=== PATIENT | female | born 1980 | race Caucasian/White ===

== ENCOUNTER → 2017-01-19 | Outpatient (CLI) | payer OTHER ==
[2017-01-19 11:42] LABS: Basophils % (A) 1 %; CHCM 33.8; Eosinophils # (A) 0.1 k/uL (0-0.7); Eosinophils % (A) 2 %; HCT 38.5 % (34.0-46.0); HDW 3.33; Luc # (Auto) 0.13; Luc % (Auto) 2; Lymphocytes % (A) 35 %; MCH 29.2 pg (25.0-35.0); MCHC 33.7 g/dL (31.0-37.0); MCV 86.4 fL (80.0-100.0); Mean Platelet Volume 8.7; Monocytes # (A) 0.2 k/uL (0-1.0); Monocytes % (A) 4 %; Neutrophils # (A) 3.1 k/uL (1.3-7.7); Neutrophils % (A) 56 %; RBC 4.46 m/uL (3.80-5.40); RDW 14.4 % (11.5-15.5); WBC 5.6 k/uL (3.8-10.6); WBC (Perox) 5.77
== END | disposition home or self-care (01) ==
LOC: LABPAT 11:14
PROVIDERS: ATTEND Obstetrics & Gynecology
DX: Z01.818 Encounter for other preprocedural examination (principal)
CPT/HCPCS: 36415; 85025

== ENCOUNTER 2017-01-25 06:28 | Day surgery (SDC) | payer OTHER ==
[2017-01-23 10:17] VITALS: BMI 47.0
--- NOTE | 2017-01-24 16:34 | P.HPOB ---
History of Present Illness H&P Date: 01/24/17 Chief Complaint: menorrhagia 37 year old presents for D&C hysteroscopy and placement of mirena IUD. PT has irregular heavy menses and PCOS. Review of Systems All systems: negative Constitutional: Denies chills, Denies fever Eyes: denies blurred vision, denies pain Ears, nose, mouth and throat: Denies headache, Denies sore throat Cardiovascular: Denies chest pain, Denies shortness of breath Respiratory: Denies cough Gastrointestinal: Denies abdominal pain, Denies diarrhea, Denies nausea, Denies vomiting Genitourinary: Denies dysuria, Denies hematuria Musculoskeletal: Denies myalgias Integumentary: Denies pruritus, Denies rash Neurological: Denies numbness, Denies weakness Psychiatric: Denies anxiety, Denies depression Endocrine: Denies fatigue, Denies weight change Past Medical History Past Medical History: No Reported History Additional Past Medical History / Comment(s): polycystic ovarian sydrome. Obstetric history: She has had 3 normal vaginal deliveries. History of Any Multi-Drug Resistant Organisms: None Reported Past Surgical History: Cholecystectomy Additional Past Surgical History / Comment(s): left ovary removed Past Anesthesia/Blood Transfusion Reactions: Postoperative Nausea & Vomiting ( PONV) Past Psychological History: No Psychological Hx Reported Smoking Status: Former smoker Past Alcohol Use History: Occasional Additional Past Alcohol Use History / Comment(s): Smoked ocassionally for 1 yr, quit 2007. Past Drug Use History: None Reported - Past Family History Mother Family Medical History: No Reported History Medications and Allergies Home Medications Medication Instructions Recorded Confirmed Type No Known Home Medications [No 01/23/17 01/23/17 History Known Home Medications] Allergies Allergy/AdvReac Type Severity Reaction Status Date / Time No Known Allergies Allergy Verified 01/23/17 10:06 Exam Osteopathic Statement: *. No significant issues noted on an osteopathic structural exam other than those noted in the History and Physical/Consult. Heart: RRR Lungs: CTAB Abdomen: soft, nontender Extremeties: neg elidia's Assessment and Plan (1) Menorrhagia with irregular cycle Status: Acute Plan: 1. D&C hysteroscopy and endometrial ablation with NovaSure
[~2017-01-25 06:28] MED LIST: DEXAMETHASONE SOD PHOSPHATE 10 MG/ML 1 ML VIAL IV ONE; HYDROmorphone 1 MG/ML 1 ML SYRINGE IVP PRN; LACTATED RINGERS 1,000 ML IV SCH; LIDOCAINE 1% 20 ML VIAL (10MG/ML) FOR IV START INTRADERMA PRN; MIDAZOLAM 2 MG/2 ML VIAL IV PRN; Pre Op ABX Message 1 EACH MISC MISCELLANE ONE; SCOPOLAMINE 1.5MG/72HR PATCH TRANSDERM ONE
[2017-01-25] MEDS: ONDANSETRON 4 MG/2 ML VIAL IVP ONE ×2 (07:08→08:26)
[2017-01-25] MEDS ORDERED: PROPOFOL 10 MG/ML 20 ML VIAL IV ONE (07:28)
[2017-01-25] MEDS ORDERED: MIDAZOLAM 2 MG/2 ML VIAL ONE (07:28)
[2017-01-25] MEDS ORDERED: KETOROLAC 30 MG/ML 1 ML VIAL ONE (07:28)
[2017-01-25] MEDS ORDERED: LIDOCAINE 1% INJ 10MG/ML (20 ML MDV) ONE (07:28)
[2017-01-25] MEDS ORDERED: SUCCINYLCHOLINE CHLORIDE VIAL 200 MG/10 ML VIAL IV ONE (07:28)
--- NOTE | 2017-01-25 07:55 | P.OP ---
Date of Procedure: 01/25/17 Preoperative Diagnosis: 1. menorrhagia with irregular cycles Postoperative Diagnosis: 1. menorrhagia with irregular cycles Procedure(s) Performed: D&C, hysteroscopy, placement of Mirena IUD Anesthesia: GHULAM Surgeon: Lakisha Harvey Estimated Blood Loss (ml): 5 IV fluids (ml): 600 Urine output (ml): 10 Pathology: other (Endometrial curettings) Condition: stable Disposition: PACU Operative Findings: Smooth contour of the uterus, both ostia visualized, uterus sounded to 10 cm. Description of Procedure: Patient is taken the operating room where general anesthesia was obtained without difficulty. She is prepped draped normal sterile fashion dorsal lithotomy position, legs placed in stirrups. Bladder was drained of all urine. Weighted speculum placed in the vagina and the anterior lip the cervix was grasped with a single-tooth tenaculum. The uterus sounded to 10 cm. The cervix is dilated to #8 Hegar dilator. Hysteroscopy was performed. During the hysteroscopy was noted that she had a smooth contour of uterus, no polyps or proliferative endometrium seen, both ostia visualized. Sharp curet was then gently used to obtain endometrial curettings. The Mirena was then placed in normal sterile fashion, strings cut to to 3 cm from the cervical os. Patient tolerated the procedure well, sponge and instrument counts are correct 2. She was taken to recovery room in stable condition.
[2017-01-25 08:21] VITALS: TEMP 97.4
[2017-01-25] MEDS ORDERED: PROMETHAZINE INJ 25 MG/ML 1 ML VIAL IVPB ONE (08:49)
[2017-01-25] MEDS ORDERED: LACTATED RINGERS 1,000 ML IV ONE ×2 (08:53)
[2017-01-25 09:59] VITALS: BP 123/79; PULSE 77; RESP 16
== END 2017-01-25 10:15 | disposition home or self-care (01) ==
LOC: OR 06:28
PROVIDERS: ATTEND Obstetrics & Gynecology
DX: N92.0 Excessive and frequent menstruation with regular cycle (principal); N92.6 Irregular menstruation, unspecified; E28.2 Polycystic ovarian syndrome; Z87.891 Personal history of nicotine dependence
CPT/HCPCS: 81025; 88305; 58558; 58300; J2250; J0330; J1100; J2550; J2405; J2001; J1885; J2704

== ENCOUNTER → 2017-12-26 | Outpatient (CLI) | payer MEDICAID, OTHER ==
--- NOTE | 2017-12-26 16:15 | XR ---
EXAMINATION TYPE: XR Hip Complete RT DATE OF EXAM: 12/26/2017 COMPARISON: NONE HISTORY: 37 year-old female right leg pain after fall a week ago TECHNIQUE: 2 views FINDINGS: There is some bony prominence along the superior acetabular margin. Joint space is maintained. No acu te fracture, subluxation, or dislocation. IMPRESSION: 1. No acute osseous abnormality seen. 2. There is some bony prominence of the superior acetabular margin. Correlate for any potential sympt oms of femoral acetabular impingement syndrome.
--- NOTE | 2017-12-26 16:16 | XR ---
EXAMINATION TYPE: XR knee complete RT DATE OF EXAM: 12/26/2017 COMPARISON: NONE HISTORY: 37 year-old female right leg pain after fall a week ago TECHNIQUE: 3 views FINDINGS: Minimal degenerative spurring medial and patellofemoral compartments. No significant knee joint effus ion. Extensor mechanism is intact. No acute fracture, subluxation, or dislocation seen. IMPRESSION: Minimal early spurring in the medial and patellofemoral compartments. No acute osseous abnormality se en.
== END | disposition home or self-care (01) ==
LOC: RADXRMAIN 14:28
PROVIDERS: ATTEND Family Medicine
DX: M79.604 Pain in right leg (principal)
CPT/HCPCS: 73502

== ENCOUNTER → 2018-01-23 | Outpatient (CLI) | payer MEDICAID, OTHER ==
[2018-01-23 13:21] VITALS: BP 126/72; PULSE 100; RESP 15; TEMP 98.7; BMI 50.0
--- NOTE | 2018-01-23 14:40 | P.HPBAR ---
Bariatric H&P - History & Physicial H&P Date: 01/23/18 History & Physicial: Visit/CC: gastric surgery consult Patient initial contact: Initial weight: 136.441 kg Initial weight in pounds: 300.80 Height: 5 ft 5 in Initial BMI: 50.0 Last weight: Current weight: 136.441 kg Current weight in pounds: 300.80 Current BMI: 50.0 [place] body weight (based on NIH guidelines): 56.699 kg Excess body weight loss: 0.0% The patient is a 38 year-old F who presents for Bariatric Assessment. Patient seen today in the clinic as a new patient evaluation for bariatric surgery. She is known to our office from working at [facility] [employer] in the past. She is currently interested in sleeve gastrectomy. She has investigated LAP-BAND previously and also gastric bypass but prefers the risk benefit profile of the sleeve gastrectomy. The patient suffers from chronic back pain. She states that she does snore because of enlarged tonsils but never had a sleep study. Denies GERD, no DVT, no dysphagia. Today's BMI 50. Review of Systems The patient denies any acute changes in vision or hearing, no dysphagia or odynophagia, no chest pain or shortness of breath, no dysuria or hematuria, no headache, no runny nose, no rectal bleeding or melena, no unexplained weight loss Past Medical History Additional Past Medical History / Comment(s): polycystic ovarian sydrome. Obstetric history: She has had 3 normal vaginal deliveries. History of Any Multi-Drug Resistant Organisms: None Reported Past Surgical History: Cholecystectomy Additional Past Surgical History / Comment(s): left ovary removed 2008; gallbladder removed in 2000 Past Anesthesia/Blood Transfusion Reactions: Postoperative Nausea & Vomiting ( PONV) Additional Past Anesthesia/Blood Transfusion Reaction / Comm: No blood transfusion to date Past Psychological History: Depression Additional Psychological History / Comment(s): Takes prozac 20mg daily Smoking Status: Never smoker Past Alcohol Use History: None Reported Past Drug Use History: None Reported - Past Family History Mother Family Medical History: Osteoarthritis (OA) Additional Family Medical History / Comment(s): patient states her maternal grandfather had lung cancer Father Additional Family Medical History / Comment(s): Patient states her father had a non-cancerous brain tumor. Patient stats paternal grandmother had breast cancer Surgical - Exam Vital Signs Temp Pulse Resp BP 98.7 F 100 15 126/72 01/23/18 13:13 01/23/18 13:13 01/23/18 13:13 01/23/18 13:13 Physical exam: General: Well-developed, well-nourished HEENT: Normocephalic, sclerae nonicteric Abdomen: Nontender, nondistended Extremities: No edema Neuro: Alert and oriented Bariatric Assessment & Plan (1) Morbid obesity Narrative/Plan: Surgical options for the treatment of orbital obesity were discussed in detail with the patient. She did already attend a seminar the discussed the surgical treatment of morbid obesity in detail. She has friends that have had both the gastric bypass and the gastric sleeve. We discussed the average weight loss expectations with all 3 procedures discussed. She is comfortable with the amount of weight loss estimates and the risks associated with sleeve gastrectomy. We'll check preoperative labs and we'll perform upper endoscopy. Meanwhile the patient will continue to consider her options. Status: Acute Bariatric Checklist Checklist: Plan: Checklist: EGD: 1. Hiatal hernia: 2. H. Pylori: HgbA1c: Vitamin D: Smoking: Never smoker Primary care physician referral: Francois Kidd Psychiatry clearance: Cardiology clearance: Sleep study: Diet journal: VTE risk score: VTE risk level: Rehab needs at discharge:
== END | disposition home or self-care (01) ==
LOC: BARWHC3 12:41
PROVIDERS: ATTEND Surgery
DX: E66.01 Morbid (severe) obesity due to excess calories (principal); Z68.43 Body mass index [BMI] 50.0-59.9, adult
CPT/HCPCS: 99211

== ENCOUNTER → 2018-02-25 | Outpatient (CLI) | payer MEDICAID, OTHER ==
[2018-02-25 14:36] VITALS: BP 135/77; PULSE 90; RESP 16; TEMP 98.2; BMI 50.1
--- NOTE | 2018-02-25 14:56 | P.BASOAP ---
Subjective Progress Note Date: 02/25/18 Principal diagnosis: Morbid obesity Patient doing well today. She underwent her upper endoscopy a few weeks ago. Only mild gastritis was seen and a small polyp. Biopsy negative for H. pylori. Interested in proceeding with sleeve gastrectomy. Objective - Vital Signs Vital signs: Vital Signs Temp 98.2 F 02/25/18 14:33 Pulse 90 02/25/18 14:33 Resp 16 02/25/18 14:33 BP 135/77 02/25/18 14:33 Pulse Ox Intake & Output 02/24/18 02/25/18 02/25/18 18:59 06:59 18:59 Weight 136.616 kg - Exam Abdomen: Soft, nontender, nondistended Assessment/Plan (1) Morbid obesity Narrative/Plan: Clinical scenario once again discussed with the patient in detail. She remains interested in sleeve gastrectomy. We reviewed the patient's preoperative consent form with the associated complication profile. All questions were answered. We will schedule. Plan: Date: 02/25/18 Initial Weight: 136.441 kg Initial BMI: 50.0 Current Weight: 136.616 kg Current BMI: 50.1 Type of Surgery: Total Volume in Band: Previous Volume: Volume Removed: Volume Added: Band Size:
== END | disposition home or self-care (01) ==
LOC: BARWHC3 13:46
PROVIDERS: ATTEND Surgery
DX: E66.01 Morbid (severe) obesity due to excess calories (principal); K29.70 Gastritis, unspecified, without bleeding; Z68.43 Body mass index [BMI] 50.0-59.9, adult
CPT/HCPCS: 99211

== ENCOUNTER → 2018-04-07 | Outpatient (CLI) | payer MEDICAID, OTHER ==
[2018-04-08 14:26] VITALS: BMI 49.4
== END | disposition home or self-care (01) ==
LOC: BARWHC3 08:46
PROVIDERS: ATTEND Surgery
DX: E66.01 Morbid (severe) obesity due to excess calories (principal)
CPT/HCPCS: 97804

== ENCOUNTER → 2018-07-29 | Outpatient (CLI) | payer MEDICAID, OTHER ==
[2018-07-29 13:20] VITALS: BP 116/75; PULSE 89; RESP 16; TEMP 97.9; BMI 47.2
--- NOTE | 2018-07-29 15:21 | P.BASOAP ---
Subjective Progress Note Date: 07/29/18 Principal diagnosis: Morbid obesity Patient returns for evaluation. She'll for surgery on 08/25. No new complaints. Recently started working at [employer]. Minimal reflux symptoms Objective - Vital Signs Vital signs: Vital Signs Temp 97.9 F 07/29/18 13:18 Pulse 89 07/29/18 13:18 Resp 16 07/29/18 13:18 BP 116/75 07/29/18 13:18 Pulse Ox Intake & Output 07/28/18 07/29/18 07/29/18 18:59 06:59 18:59 Weight 128.82 kg - Exam Abdomen: Soft, nontender, nondistended Assessment/Plan (1) Morbid obesity Narrative/Plan: Patient doing well at this time. She has lost 16 pounds preoperatively. We'll proceed with sleeve gastrectomy on 08/25. The preoperative surgical consent form was reviewed in detail with her and her mother. The risks of bleeding, infection, stenosis, stricture, leak, abscess, fistula formation, peritonitis, poor weight loss, reflux, vomiting, conversion to an open procedure, aborting sleeve gastrectomy, [place], PE, DVT, and were discussed. The patient understands and wishes to proceed. Plan: Date: 07/29/18 Initial Weight: 136.441 kg Initial BMI: 50.0 Current Weight: 128.82 kg Current BMI: 47.2 Type of Surgery: Total Volume in Band: Previous Volume: Volume Removed: Volume Added: Band Size:
== END | disposition home or self-care (01) ==
LOC: BARWHC3 12:48
PROVIDERS: ATTEND Surgery
DX: E66.01 Morbid (severe) obesity due to excess calories (principal); Z68.42 Body mass index [BMI] 45.0-49.9, adult
CPT/HCPCS: 99211

== ENCOUNTER → 2018-08-11 | Outpatient (CLI) | payer MEDICAID, OTHER ==
[2018-08-11 09:54] LABS: Basophils % (A) 1 %; Eosinophils # (A) 0.1 k/uL (0-0.7); Eosinophils % (A) 2 %; HCT 37.3 % (34.0-46.0); HGB 12.7 gm/dL (11.4-16.0); Lymphocytes # (A) 2.2 k/uL (1.0-4.8); Lymphocytes % (A) 44 %; MCH 29.2 pg (25.0-35.0); MCHC 34.1 g/dL (31.0-37.0); MCV 85.5 fL (80.0-100.0); Mean Platelet Volume 7.4; Monocytes # (A) 0.3 k/uL (0-1.0); Monocytes % (A) 6 %; Neutrophils # (A) 2.2 k/uL (1.3-7.7); Neutrophils % (A) 45 %; Platelet Count 238 k/uL (150-450); RBC 4.36 m/uL (3.80-5.40); RDW 13.8 % (11.5-15.5); WBC 4.9 k/uL (3.8-10.6)
[2018-08-11 10:45] LABS: ALT 43 U/L (9-52); AST 28 U/L (14-36); Alkaline Phosphatase 53 U/L (38-126); Anion Gap 7 mmol/L; Blood Urea Nitrogen 13 mg/dL (7-17); Calcium 9.4 mg/dL (8.4-10.2); Carbon Dioxide 28 mmol/L (22-30); Chloride 106 mmol/L (98-107); Glucose 86 mg/dL (74-99); Potassium 4.3 mmol/L (3.5-5.1); Sodium 141 mmol/L (137-145)
== END | disposition home or self-care (01) ==
LOC: LABPAT 08:39
PROVIDERS: ATTEND Surgery
DX: Z01.818 Encounter for other preprocedural examination (principal); Z01.812 Encounter for preprocedural laboratory examination
CPT/HCPCS: 36415; 80053; 85025; 93005

== ENCOUNTER 2018-08-25 07:44 | Inpatient (IN) | payer MEDICAID, OTHER ==
[2018-08-13 11:54] VITALS: BMI 46.4
[~2018-08-25 07:44] MED LIST changes: +ENOXAPARIN 40 MG/0.4 ML SYRINGE SQ ONE; -HYDROmorphone 1 MG/ML 1 ML SYRINGE IVP PRN; -LACTATED RINGERS 1,000 ML IV SCH; +ONDANSETRON 4 MG/2 ML VIAL IVP ONE; -Pre Op ABX Message 1 EACH MISC MISCELLANE ONE; -SCOPOLAMINE 1.5MG/72HR PATCH TRANSDERM ONE
--- NOTE | 2018-08-25 08:35 | P.GSHP ---
History of Present Illness H&P Date: 08/25/18 Chief Complaint: Morbid obesity Patient here today for elective sleeve gastrectomy. First seen regarding bariatric surgery in January of this year. Patient completed her supervised weight loss program. Remains interested in sleeve gastrectomy. Patient suffers from chronic back pain. Denies DVT or dysphagia. BMI 50 when first evaluated. Today BMI 46.4. Recent upper endoscopy showed gastritis and a small gastric polyp. Past Medical History Past Medical History: Osteoarthritis (OA) Additional Past Medical History / Comment(s): polycystic ovarian sydrome, migraines, enlarged tonsils, arthritis in neck., has IUD., States she is following an [address] Chambers prior to her surgery. History of Any Multi-Drug Resistant Organisms: None Reported Past Surgical History: Cholecystectomy Additional Past Surgical History / Comment(s): left ovary (2008), gallbladder ( 2000) Past Anesthesia/Blood Transfusion Reactions: Postoperative Nausea & Vomiting ( PONV) Additional Past Anesthesia/Blood Transfusion Reaction / Comment(s): . Past Psychological History: Depression Smoking Status: Former smoker Past Alcohol Use History: None Reported Additional Past Alcohol Use History / Comment(s): smoked approx 2 years., quit 12 years ago.(2005) Past Drug Use History: None Reported - Past Family History Mother Family Medical History: No Reported History Father Additional Family Medical History / Comment(s): Patient states her father had a non-cancerous brain tumor. Patient states paternal grandmother had breast cancer Medications and Allergies Home Medications Medication Instructions Recorded Confirmed Type FLUoxetine HCL [PROzac] 20 mg PO DAILY 01/23/18 08/13/18 History Levonorgestrel [Mirena] 1 each VAGINAL DIRECTED 08/13/18 08/13/18 History Allergies Allergy/AdvReac Type Severity Reaction Status Date / Time No Known Allergies Allergy Verified 08/13/18 11:44 Surgical - Exam Physical exam: General: Well-developed, well-nourished HEENT: Normocephalic, sclerae nonicteric Abdomen: Nontender, nondistended Extremities: No edema Neuro: Alert and oriented Assessment and Plan (1) Morbid obesity Narrative/Plan: Will proceed with laparoscopic sleeve gastrectomy, possible open. The risks of bleeding, infection, stenosis, stricture, leak, abscess, fistula formation, peritonitis, poor weight loss, reflux, vomiting, conversion to an open procedure , aborting sleeve gastrectomy, DC, PE, DVT, and were discussed. The patient understands and wishes to proceed. Current Visit: No Status: Acute Code(s): E66.01 - MORBID (SEVERE) OBESITY DUE TO EXCESS CALORIES SNOMED Code(s): 442059997
[2018-08-25] MEDS: LACTATED RINGERS 1,000 ML IV SCH (09:00)
[2018-08-25] MEDS ORDERED: LIDOCAINE 1% INJ 10MG/ML (20 ML MDV) ONE (09:58)
[2018-08-25] MEDS ORDERED: ROCURONIUM BROMIDE 10 MG/ML 10 ML VIAL IV ONE (09:58)
[2018-08-25] MEDS ORDERED: MIDAZOLAM 2 MG/2 ML VIAL ONE (09:58)
[2018-08-25] MEDS ORDERED: PROPOFOL 10 MG/ML 20 ML VIAL IV ONE (09:58)
[2018-08-25] MEDS ORDERED: GLYCOPYRROLATE 0.2 MG/ML 2 ML VIAL ONE (09:58)
[2018-08-25] MEDS ORDERED: NEOSTIGMINE 1 MG/ML 10 ML VIAL ONE (09:58)
[2018-08-25] MEDS ORDERED: MEPERIDINE 50 MG/ML SYRINGE ONE (09:58)
[2018-08-25] MEDS ORDERED: fentaNYL (PF) 50 MCG/ML 2 ML AMP ONE (09:58)
[2018-08-25] MEDS ORDERED: LACTATED RINGERS 1,000 ML IV ONE (10:30)
[2018-08-25] MEDS ORDERED: BUPIVACAIN-EPI 0.25%-1:200,000 30 ML VIAL SQ ONE (10:42)
[2018-08-25] MEDS ORDERED: diphenhydrAMINE 50 MG/ML 1 ML VIAL IVP PRN (11:54)
[2018-08-25] MEDS ORDERED: NALOXONE 0.4 MG/ML 1 ML VIAL IV PRN (11:54)
--- NOTE | 2018-08-25 11:59 | P.OP ---
Date of Procedure: 08/25/18 Procedure(s) Performed: PREOPERATIVE DIAGNOSIS: Morbid obesity, chronic back pain POSTOPERATIVE DIAGNOSIS: Same PROCEDURE: Laparoscopic sleeve gastrectomy SURGEON: Reyes EBL: Minimal ANESTHESIA: General COMPLICATIONS: None OPERATIVE PROCEDURE: Patient was placed in the operating table in the supine position. She was placed under general anesthesia at that time. The abdomen was prepped and draped in sterile fashion after the patient was placed in lithotomy. A 5 mm optical trocar was used to enter the abdominal cavity in the left upper quadrant. Insufflation took place to 15 millimeters mercury. An additional right subxiphoid 5 mm trocar was then placed under direct visualization and then removed. 2 additional 5 mm trochars were placed in the right upper quadrant and left upper quadrant under direct visualization and a 15 mm trocar in the supraumbilical location. The liver was retracted using a medium Rui liver retractor through the right subxiphoid trocar site. The hiatus was inspected. The patient had no visible hiatal hernia At that point I moved to the mid aspect of the greater curvature the stomach. The short gastric vasculature was divided using a LigaSure device proximally. I then switched and divided the short gastrics distally to a 3-4 cm from the pylorus. The dissection took place up to the left diaphragmatic crura at that point. The posterior short gastrics were likewise divided using the LigaSure device. Once the stomach was fully mobilized the blunt tipped 40-[place] bougie dilator was advanced into the stomach and advanced all the way to the prepyloric location. A black echelon 60 stapler was utilized and fired tangentially across the antrum taking care to avoid narrowing at the incisura angularis. Subsequent firings of the stapler took place. A total of 5 green echelon 60 staplers with seam guard took place proximally staying on the outer edge of our dilator. The oral gastric tube was reinserted. The stomach was insufflated with approximately 100 mL of methylene blue. No evidence of leak or obstruction was seen. The distal aspect of the sleeve was then reapproximated to the gastrosplenic and gastrocolic ligament using a short running 2-0 strata fix suture. This was done to prevent kinking or twisting of the sleeve. The stomach remnant was removed from the 15 mm trocar site without difficulty. The fascia at the 15 more site was closed using interrupted 0 Vicryl sutures with the laparoscopic suture passer and García Portia technique. The insufflation was evacuated. The skin at all 5 incisions were closed using 4-0 Monocryl sutures. Dermabond was then applied. DISPOSITION: Stable to recovery room
[2018-08-25] MEDS ORDERED: ONDANSETRON 4 MG/2 ML VIAL IVP ONE ×2 (12:05→16:00)
[2018-08-25] MEDS: fentaNYL (PF) 50 MCG/ML 2 ML AMP IV PRN ×2 (12:14→12:50)
[2018-08-25] MEDS ORDERED: PROMETHAZINE INJ 25 MG/ML 1 ML VIAL IVPB ONE (12:29)
[2018-08-25] MEDS ORDERED: HYDROmorphone 1 MG/ML 1 ML SYRINGE IVP ONE (15:45)
[2018-08-25] MEDS ORDERED: diphenhydrAMINE 50 MG/ML 1 ML VIAL IVP ONE (16:00)
[2018-08-25] MEDS: ALBUTEROL NEBULIZED 2.5 MG/3 ML INHALATION SCH ×2 (16:33→20:24)
[2018-08-25] MEDS: KETOROLAC 30 MG/ML 1 ML VIAL IVP SCH ×2 (17:10→23:33)
[2018-08-25] MEDS ORDERED: ACETAMINOPHEN IV (For NPO) 1,000 MG in EMPTY BAG 1 BAG IVPB ONE (18:00)
[2018-08-25] MEDS: HYDROmorphone 1 MG/ML 1 ML SYRINGE IVP PRN ×2 (20:14→23:34)
[2018-08-25] MEDS: ONDANSETRON 4 MG/2 ML VIAL IVP PRN (20:14)
[2018-08-25] MEDS: SIMETHICONE 40 MG/0.6 ML DROPS 2,000 MG/30 ML BOTTLE PO PRN (23:59)
[2018-08-26] MEDS: LACTATED RINGERS 1,000 ML IV SCH ×5 (02:20→23:49)
[2018-08-26] MEDS: KETOROLAC 30 MG/ML 1 ML VIAL IVP SCH ×4 (05:15→23:49)
[2018-08-26] MEDS: HYDROmorphone 1 MG/ML 1 ML SYRINGE IVP PRN ×4 (05:16→20:35)
[2018-08-26] MEDS: ONDANSETRON 4 MG/2 ML VIAL IVP PRN ×3 (05:17→17:18)
[2018-08-26 07:33] LABS: Basophils % (A) 0 %; Eosinophils % (A) 0 %; HCT 36.2 % (34.0-46.0); HGB 12.3 gm/dL (11.4-16.0); Lymphocytes # (A) 1.4 k/uL (1.0-4.8); Lymphocytes % (A) 17 %; MCH 28.9 pg (25.0-35.0); MCHC 33.8 g/dL (31.0-37.0); MCV 85.6 fL (80.0-100.0); Mean Platelet Volume 7.9; Monocytes # (A) 0.5 k/uL (0-1.0); Monocytes % (A) 6 %; Neutrophils # (A) 6.5 k/uL (1.3-7.7); Neutrophils % (A) 76 %; Platelet Count 251 k/uL (150-450); RBC 4.23 m/uL (3.80-5.40); RDW 14.2 % (11.5-15.5); WBC 8.5 k/uL (3.8-10.6)
[2018-08-26 08:01] LABS: Anion Gap 9 mmol/L; Blood Urea Nitrogen 5 mg/dL (7-17); Calcium 9.2 mg/dL (8.4-10.2); Carbon Dioxide 28 mmol/L (22-30); Chloride 103 mmol/L (98-107); Magnesium 1.6 mg/dL (1.6-2.3); Phosphorus 3.8 mg/dL (2.5-4.5); Sodium 140 mmol/L (137-145)
[2018-08-26] MEDS: ALBUTEROL NEBULIZED 2.5 MG/3 ML INHALATION SCH ×4 (08:07→19:52)
[2018-08-26] MEDS: HYOSCYAMINE ORAL DROPS 1.875 MG/15 ML BOTTLE PO PRN ×3 (08:15→15:05)
[2018-08-26] MEDS: SIMETHICONE 40 MG/0.6 ML DROPS 2,000 MG/30 ML BOTTLE PO PRN ×3 (08:15→21:38)
[2018-08-26] MEDS: ENOXAPARIN 40 MG/0.4 ML SYRINGE SQ SCH ×2 (08:46→20:35)
[2018-08-26] MEDS: PANTOPRAZOLE 40 MG/10 ML VIAL IV SCH (08:46)
--- NOTE | 2018-08-26 09:54 | FL ---
EXAMINATION TYPE: FL UGI DATE OF EXAM: 08/26/2018 COMPARISON: NONE HISTORY: Status post gastric sleeve TECHNIQUE: A single contrast UGI study is performed. 53 seconds of fluoroscopy time was utilized wit h 14 fluoroscopic images saved FINDINGS: The patient swallowed contrast without difficulty or delay. Esophageal peristalsis and mo tility are within normal limits. There is good flow of contrast along the diaphragmatic hiatus into proximal stomach and subsequent flow into gastric sleeve. There is slightly delayed flow from distal sleeve into pylorus and duodenal sweep. Patient remains asymptomatic. There is no evidence of contras t extravasation to suggest leak. IMPRESSION: No evidence of leak or significant obstruction status post recent gastric sleeve surgery.
--- NOTE | 2018-08-26 11:06 | P.CONS ---
History of Present Illness - Reason for Consult Consult date: 08/26/18 medical management Requesting physician: Marky Chambers - Chief Complaint s/p gastric sleeve - History of Present Illness 38-year-old female who underwent elective sleeve gastrectomy on [address] Kidd was consulted for medical management. The patient was seen postoperatively at the bedside. She states her pain is tolerable and reports she recently received pain medication. She denies shortness of breath. Denies chest pain or pressure. Laparoscopic sites are clean and without drainage. Patient underwent an upper GI series today which did not reveal evidence of leak or significant obstruction. Vital signs are stable. CBC and BMP are unremarkable. Review of Systems Those systems with pertinent positive or pertinent negative responses have been documented in the HPI Past Medical History Past Medical History: Osteoarthritis (OA) Additional Past Medical History / Comment(s): polycystic ovarian sydrome, migraines, enlarged tonsils, arthritis in neck., has IUD., States she is following an [address] Chambers prior to her surgery. History of Any Multi-Drug Resistant Organisms: None Reported Past Surgical History: Cholecystectomy Additional Past Surgical History / Comment(s): left ovary (2008), gallbladder ( 2000) Past Anesthesia/Blood Transfusion Reactions: Postoperative Nausea & Vomiting ( PONV) Additional Past Anesthesia/Blood Transfusion Reaction / Comm: . Past Psychological History: Depression Additional Psychological History / Comment(s): Takes prozac 20mg daily Smoking Status: Former smoker Past Alcohol Use History: None Reported Additional Past Alcohol Use History / Comment(s): smoked approx 2 years., quit 12 years ago.(2005) Past Drug Use History: None Reported - Past Family History Mother Family Medical History: No Reported History Father Additional Family Medical History / Comment(s): Patient states her father had a non-cancerous brain tumor. Patient states paternal grandmother had breast cancer Medications and Allergies Home Medications Medication Instructions Recorded Confirmed Type FLUoxetine HCL [PROzac] 20 mg PO DAILY 01/23/18 08/25/18 History Levonorgestrel [Mirena] 1 each VAGINAL DIRECTED 08/13/18 08/25/18 History Allergies Allergy/AdvReac Type Severity Reaction Status Date / Time No Known Allergies Allergy Verified 08/25/18 16:53 Physical Exam Vitals: Vital Signs Temp Pulse Pulse Pulse Resp BP Pulse Ox 08/26/18 08:18 98.0 F 84 16 120/82 96 08/26/18 08:15 92 08/26/18 08:07 88 96 08/26/18 05:22 99 08/26/18 01:00 98.4 F 76 16 144/84 97 08/25/18 20:29 98.1 F 67 16 141/90 95 08/25/18 18:20 97.9 F 72 18 164/93 99 08/25/18 16:00 79 14 156/97 95 08/25/18 15:33 72 18 151/95 96 08/25/18 15:00 80 18 149/92 97 08/25/18 14:30 79 18 145/92 97 08/25/18 14:00 71 18 145/77 97 08/25/18 13:45 68 18 145/78 97 08/25/18 13:30 73 18 142/77 97 08/25/18 13:15 79 18 149/85 95 08/25/18 13:00 66 18 147/76 94 L 08/25/18 12:45 76 18 132/71 94 L 08/25/18 12:30 80 18 162/79 94 L 08/25/18 12:15 78 18 170/79 94 L 08/25/18 12:01 97.6 F 109 H 18 159/93 92 L Intake and Output 08/25/18 08/26/18 08/26/18 22:59 06:59 14:59 Output Total 75 Balance -75 Output: Urine 75 Other: Voiding Method Toilet # Voids 1 2 Weight 126.552 kg GENERAL: This is a 38-year-old female in no apparent distress at the time of examination. Pleasant and cooperative. HEENT: Head is atraumatic, normocephalic. Pupils are equal, round, and reactive to light. Sclerae anicteric. Conjunctivae are clear. Mucus membranes of the mouth are moist. Neck is supple. RESPIRATORY: Clear to ausculation. No wheezes, rales, or rhonchi. No use of accessory muscles. Patient maintaining oxygen saturation greater than 92%. No chest wall tenderness is noted on palpation or with deep breathing. CARDIOVASCULAR: Regular rate and rhythm. S1 and S2 noted. No systolic or diastolic murmur auscultated. No JVD noted. No S3 or S4 noted. GASTROINTESTINAL: No distention noted. Abdomen soft and round. Bowel sounds auscultated x 4 quadrants. Laparoscopic sites clean without drainage noted. INTEGUMENTARY: No cyanosis. No jaundice. No rashes noted. No cellulitis noted. EXTREMITIES: 2+ peripheral pulses. No evidence of peripheral edema. No calf tenderness noted. NEUROLOGIC: Cranial nerves II-XII intact. PSYCHIATRIC: Awake, alert, and oriented X 3. Appropriate affect. Intact judgement and insight. Results CBC & Chem 7: 08/26/18 06:57 08/26/18 06:57 Labs: Abnormal Lab Results - Last 24 Hours (Table) 08/26/18 Range/Units 06:57 BUN 5 L (7-17) mg/dL Assessment and Plan Plan: ASSESSMENT: Morbid obesity: BMI 46.4, status post laparoscopic sleeve gastrectomy History of polycystic ovarian syndrome History of depression History of nicotine dependence, in remission, patient quit smoking in 2005 PLAN: Continue postoperative care per Dr. Chambers. Pain control. Activity as tolerated. Incentive spirometer 10 times an hour. Resume home meds. GI/DVT prophylaxis. Full liquid diet. Thank you for this consultation. We will continue to follow along with Bi during her hospitalization. Nurse practitioner note has been reviewed by physician. Signing provider agrees with the documented findings, assessment, and plan of care.
[2018-08-26] MEDS: FLUoxetine HCL 20 MG CAP PO SCH (12:11)
--- NOTE | 2018-08-26 16:23 | P.PN ---
Subjective Progress Note Date: 08/26/18 Principal diagnosis: Morbid obesity Patient doing better today. Was having more discomfort last night. No pain with drinking. Denies nausea or vomiting currently. Upper GI shows no evidence of leak or obstruction. White blood cell count 8.5. Objective - Vital Signs Vital signs: Vital Signs Temp 98.0 F 08/26/18 08:18 Pulse 84 08/26/18 12:42 Resp 16 08/26/18 08:18 BP 120/82 08/26/18 08:18 Pulse Ox 98 08/26/18 09:15 Intake & Output 08/25/18 08/26/18 08/26/18 18:59 06:59 18:59 Intake Total 1550 360 Output Total 100 Balance 1450 360 Weight 126.552 kg 126.552 kg Intake: IV 1550 Oral 360 Output: Urine 75 Estimated Blood Loss 25 Other: Voiding Method Toilet Toilet # Voids 1 2 - Exam Abdomen: Soft, nondistended, mild epigastric tenderness, incisions clean and dry - Labs CBC & Chem 7: 08/26/18 06:57 08/26/18 06:57 Labs: Abnormal Lab Results - Last 24 Hours (Table) 08/26/18 Range/Units 06:57 BUN 5 L (7-17) mg/dL Assessment and Plan (1) Morbid obesity Narrative/Plan: Continue bariatric clear liquids. Add Toradol for pain control. Reevaluate tomorrow. Current Visit: Yes Status: Acute Code(s): E66.01 - MORBID (SEVERE) OBESITY DUE TO EXCESS CALORIES SNOMED Code(s): 244461625
[2018-08-27] MEDS: KETOROLAC 30 MG/ML 1 ML VIAL IVP SCH ×2 (06:18→13:04)
[2018-08-27] MEDS: ALBUTEROL NEBULIZED 2.5 MG/3 ML INHALATION SCH ×4 (07:33→20:22)
[2018-08-27] MEDS: HYOSCYAMINE ORAL DROPS 1.875 MG/15 ML BOTTLE PO PRN ×3 (07:57→19:09)
[2018-08-27] MEDS: LACTATED RINGERS 1,000 ML IV SCH ×2 (07:57→17:00)
[2018-08-27] MEDS: SIMETHICONE 40 MG/0.6 ML DROPS 2,000 MG/30 ML BOTTLE PO PRN ×3 (07:57→19:09)
[2018-08-27] MEDS ORDERED: BISACODYL 5 MG TABLET.DR PO PRN (08:00)
[2018-08-27] MEDS: FLUoxetine HCL 20 MG CAP PO SCH (08:02)
[2018-08-27] MEDS: ENOXAPARIN 40 MG/0.4 ML SYRINGE SQ SCH ×2 (08:02→22:17)
[2018-08-27] MEDS: PANTOPRAZOLE 40 MG/10 ML VIAL IV SCH (08:02)
[2018-08-27] MEDS: ONDANSETRON 4 MG/2 ML VIAL IVP PRN (08:24)
--- NOTE | 2018-08-27 10:48 | P.PN ---
Subjective Progress Note Date: 08/27/18 08/26/2018 38-year-old female who underwent elective sleeve gastrectomy on [address] Kidd was consulted for medical management. The patient was seen postoperatively at the bedside. She states her pain is tolerable and reports she recently received pain medication. She denies shortness of breath. Denies chest pain or pressure. Laparoscopic sites are clean and without drainage. Patient underwent an upper GI series today which did not reveal evidence of leak or significant obstruction. Vital signs are stable. CBC and BMP are unremarkable. 08/27/2018 Patient seen and examined at the bedside. Patient is awake and alert. Patient states she is tired and did not sleep well last night. Patient is tolerating clear liquid diet. Denies nausea or vomiting. Patient states her pain is tolerable at this time. Vital signs remain stable. She is anticipating discharge home this afternoon. Objective - Vital Signs Vital signs: Vital Signs Temp 98.3 F 08/27/18 07:00 Pulse 79 08/27/18 07:00 Resp 12 08/27/18 07:00 BP 129/81 08/27/18 07:00 Pulse Ox 97 08/27/18 07:00 Intake & Output 08/26/18 08/27/18 08/27/18 18:59 06:59 18:59 Intake Total 1160 Balance 1160 Weight 126.552 kg Intake: Intake, IV Titration 800 Amount Lactated Ringers 1,000 ml 800 @ 125 mls/hr IV .Q8H [facility] Rx#:[id number] Oral 360 Other: Voiding Method Toilet # Voids 4 1 - Exam GENERAL: This is a 38-year-old female in no apparent distress at the time of examination. Pleasant and cooperative. HEENT: Head is atraumatic, normocephalic. Pupils are equal, round, and reactive to light. Sclerae anicteric. Conjunctivae are clear. Mucus membranes of the mouth are moist. Neck is supple. RESPIRATORY: Clear to ausculation. No wheezes, rales, or rhonchi. No use of accessory muscles. Patient maintaining oxygen saturation greater than 92%. No chest wall tenderness is noted on palpation or with deep breathing. CARDIOVASCULAR: Regular rate and rhythm. S1 and S2 noted. No systolic or diastolic murmur auscultated. No JVD noted. No S3 or S4 noted. GASTROINTESTINAL: No distention noted. Abdomen soft and round. Bowel sounds auscultated x 4 quadrants. Laparoscopic sites clean without drainage noted. INTEGUMENTARY: No cyanosis. No jaundice. No rashes noted. No cellulitis noted. EXTREMITIES: 2+ peripheral pulses. No evidence of peripheral edema. No calf tenderness noted. NEUROLOGIC: Cranial nerves II-XII intact. PSYCHIATRIC: Awake, alert, and oriented X 3. Appropriate affect. Intact judgement and insight. - Labs CBC & Chem 7: 08/26/18 06:57 08/26/18 06:57 Assessment and Plan Plan: ASSESSMENT: Morbid obesity: BMI 46.4, status post laparoscopic sleeve gastrectomy History of polycystic ovarian syndrome History of depression History of nicotine dependence, in remission, patient quit smoking in 2005 PLAN: Continue postoperative care per Dr. Chambers. Pain control. Activity as tolerated. Incentive spirometer 10 times an hour. Resume home meds. GI/DVT prophylaxis. Full liquid diet. Bi is cleared for discharge from a medical standpoint when cleared by Dr. Chambers. She is to follow up with Dr. Kidd in 2 weeks. Nurse practitioner note has been reviewed by physician. Signing provider agrees with the documented findings, assessment, and plan of care.
[2018-08-27 12:44] LABS: Basophils % (A) 0 %; Eosinophils % (A) 1 %; HCT 36.3 % (34.0-46.0); HGB 12.1 gm/dL (11.4-16.0); Lymphocytes # (A) 1.7 k/uL (1.0-4.8); Lymphocytes % (A) 30 %; MCH 29.1 pg (25.0-35.0); MCHC 33.3 g/dL (31.0-37.0); MCV 87.3 fL (80.0-100.0); Mean Platelet Volume 7.9; Monocytes # (A) 0.3 k/uL (0-1.0); Monocytes % (A) 6 %; Neutrophils # (A) 3.3 k/uL (1.3-7.7); Neutrophils % (A) 61 %; Platelet Count 212 k/uL (150-450); RBC 4.16 m/uL (3.80-5.40); RDW 14.2 % (11.5-15.5); WBC 5.4 k/uL (3.8-10.6)
--- NOTE | 2018-08-27 13:06 | P.PN ---
Subjective Progress Note Date: 08/27/18 Principal diagnosis: Morbid obesity Patient having pain 6 on a 7 today. States its worse when she was getting up out of bed. She is tolerated approximately 10-15 ounces of liquid so far today. No vomiting. Mild nausea at times. White blood cell count normal. Objective - Vital Signs Vital signs: Vital Signs Temp 98.3 F 08/27/18 07:00 Pulse 79 08/27/18 07:00 Resp 12 08/27/18 07:00 BP 129/81 08/27/18 07:00 Pulse Ox 97 08/27/18 07:00 Intake & Output 08/26/18 08/27/18 08/27/18 18:59 06:59 18:59 Intake Total 1160 Balance 1160 Weight 126.552 kg Intake: Intake, IV Titration 800 Amount Lactated Ringers 1,000 ml 800 @ 125 mls/hr IV .Q8H [facility] Rx#:[id number] Oral 360 Other: Voiding Method Toilet # Voids 4 1 - Exam Abdomen: Soft, mild incisional tenderness, incisions clean and dry - Labs CBC & Chem 7: 08/27/18 12:23 08/26/18 06:57 Assessment and Plan (1) Morbid obesity Narrative/Plan: Continue bariatric liquid diet. Ambulate. Tentatively plan discharge tomorrow. Current Visit: Yes Status: Acute Code(s): E66.01 - MORBID (SEVERE) OBESITY DUE TO EXCESS CALORIES SNOMED Code(s): 787093304
[2018-08-27] MEDS: HYDROmorphone 1 MG/ML 1 ML SYRINGE IVP PRN (19:10)
[2018-08-28] MEDS: HYDROmorphone 1 MG/ML 1 ML SYRINGE IVP PRN ×3 (00:05→14:11)
[2018-08-28] MEDS: SIMETHICONE 40 MG/0.6 ML DROPS 2,000 MG/30 ML BOTTLE PO PRN ×2 (00:09→07:55)
[2018-08-28] MEDS: HYOSCYAMINE ORAL DROPS 1.875 MG/15 ML BOTTLE PO PRN ×2 (00:11→07:55)
[2018-08-28] MEDS: LACTATED RINGERS 1,000 ML IV SCH ×3 (00:15→17:00)
[2018-08-28] MEDS: ALBUTEROL NEBULIZED 2.5 MG/3 ML INHALATION SCH ×3 (07:28→15:21)
[2018-08-28 08:37] VITALS: RESP 16
[2018-08-28] MEDS: PANTOPRAZOLE 40 MG/10 ML VIAL IV SCH (09:18)
[2018-08-28] MEDS: ENOXAPARIN 40 MG/0.4 ML SYRINGE SQ SCH (09:18)
[2018-08-28] MEDS: FLUoxetine HCL 20 MG CAP PO SCH (09:19)
--- NOTE | 2018-08-28 10:23 | P.PN ---
Subjective Progress Note Date: 08/28/18 08/26/2018 38-year-old female who underwent elective sleeve gastrectomy on [address] Kidd was consulted for medical management. The patient was seen postoperatively at the bedside. She states her pain is tolerable and reports she recently received pain medication. She denies shortness of breath. Denies chest pain or pressure. Laparoscopic sites are clean and without drainage. Patient underwent an upper GI series today which did not reveal evidence of leak or significant obstruction. Vital signs are stable. CBC and BMP are unremarkable. 08/27/2018 Patient seen and examined at the bedside. Patient is awake and alert. Patient states she is tired and did not sleep well last night. Patient is tolerating clear liquid diet. Denies nausea or vomiting. Patient states her pain is tolerable at this time. Vital signs remain stable. She is anticipating discharge home this afternoon. 08/28/2018 Patient seen and examined at the bedside. Patient is awake and alert. Patient does complain of some pain this morning that was aggravated with ambulation to the bathroom. Patient is tolerating liquid diet. Vital signs remained stable. She is anticipating discharge home today. Objective - Vital Signs Vital signs: Vital Signs Temp 98.0 F 08/28/18 07:50 Pulse 81 08/28/18 07:50 Resp 16 08/28/18 07:50 BP 108/71 08/28/18 07:50 Pulse Ox 96 08/28/18 07:50 Intake & Output 08/27/18 08/28/18 08/28/18 18:59 06:59 18:59 Intake Total 1400 300 500 Balance 1400 300 500 Intake: Intake, IV Titration 800 Amount Lactated Ringers 1,000 ml 800 @ 125 mls/hr IV .Q8H [facility] Rx#:[id number] Oral 600 300 500 Other: Voiding Method Toilet # Voids 4 1 - Exam GENERAL: This is a 38-year-old female in no apparent distress at the time of examination. Pleasant and cooperative. HEENT: Head is atraumatic, normocephalic. Pupils are equal, round, and reactive to light. Sclerae anicteric. Conjunctivae are clear. Mucus membranes of the mouth are moist. Neck is supple. RESPIRATORY: Clear to ausculation. No wheezes, rales, or rhonchi. No use of accessory muscles. Patient maintaining oxygen saturation greater than 92%. No chest wall tenderness is noted on palpation or with deep breathing. CARDIOVASCULAR: Regular rate and rhythm. S1 and S2 noted. No systolic or diastolic murmur auscultated. No JVD noted. No S3 or S4 noted. GASTROINTESTINAL: No distention noted. Abdomen soft and round. Bowel sounds auscultated x 4 quadrants. Laparoscopic sites clean without drainage noted. INTEGUMENTARY: No cyanosis. No jaundice. No rashes noted. No cellulitis noted. EXTREMITIES: 2+ peripheral pulses. No evidence of peripheral edema. No calf tenderness noted. NEUROLOGIC: Cranial nerves II-XII intact. PSYCHIATRIC: Awake, alert, and oriented X 3. Appropriate affect. Intact judgement and insight. - Labs CBC & Chem 7: 08/27/18 12:23 08/26/18 06:57 Assessment and Plan Plan: ASSESSMENT: Morbid obesity: BMI 46.4, status post laparoscopic sleeve gastrectomy History of polycystic ovarian syndrome History of depression History of nicotine dependence, in remission, patient quit smoking in 2005 PLAN: Continue postoperative care per Dr. Chambers. Pain control. Activity as tolerated. Incentive spirometer 10 times an hour. Resume home meds. GI/DVT prophylaxis. Full liquid diet. Bi is cleared for discharge from a medical standpoint when cleared by Dr. Chambers. She is to follow up with Dr. Kidd in 2 weeks. Nurse practitioner note has been reviewed by physician. Signing provider agrees with the documented findings, assessment, and plan of care.
[2018-08-28 15:14] VITALS: BP 121/71; PULSE 91; TEMP 98.3
--- NOTE | 2018-08-28 16:09 | P.DS ---
Providers Date of admission: 08/25/18 07:44 Expected date of discharge: 08/28/18 Attending physician: Marky Chambers Consults: 08/25/18 11:54 Consult Physician Routine Consulting Provider: Francois Kidd Jr Consult Reason/Comments: Medical management Do you want consulting provider notified?: Yes Primary care physician: Francois Kidd - Discharge Diagnosis(es) (1) Morbid obesity Patient admitted for elective sleeve gastrectomy. Patient's postoperative upper GI showed no evidence of leak or obstruction. Tolerating liquids at this time. Yesterday the patient is having increased pain with ambulation and also with drinking and it was decided to keep her one more evening. White blood cell count normal. She is afebrile without tachycardia. Patient is anxious to go home today. Will plan discharge and follow-up in 1 week. Prescriptions provided. Current Visit: Yes Status: Acute Plan - Discharge Summary Discharge Rx Participant: Yes New Discharge Prescriptions: New Bisacodyl [Dulcolax] 5 mg PO DAILY PRN #10 tablet. PRN Reason: Constipation Hydrocodone/Acetaminophen [Jackson 5-325] 1 - 2 each PO Q4HR PRN #10 tab PRN Reason: pain Ondansetron Odt [Zofran Odt] 4 mg PO Q8HR PRN #9 tab PRN Reason: Nausea Simethicone 40 mg/0.6 ml Drops [Mylicon Drops] 40 mg PO PCHS PRN #30 ml PRN Reason: Gas Continue FLUoxetine HCL [PROzac] 20 mg PO DAILY Levonorgestrel [Mirena] 1 each VAGINAL DIRECTED Discharge Medication List FLUoxetine HCL [PROzac] 20 mg PO DAILY 01/23/18 [History] Levonorgestrel [Mirena] 1 each VAGINAL DIRECTED 08/13/18 [History] Bisacodyl [Dulcolax] 5 mg PO DAILY PRN #10 tablet. 08/27/18 [Rx] Hydrocodone/Acetaminophen [Jackson 5-325] 1 - 2 each PO Q4HR PRN #10 tab 08/27/18 [Rx] Ondansetron Odt [Zofran Odt] 4 mg PO Q8HR PRN #9 tab 08/27/18 [Rx] Simethicone 40 mg/0.6 ml Drops [Mylicon Drops] 40 mg PO PCHS PRN #30 ml 10/24/ 18 [Rx] Follow up Appointment(s)/Referral(s): Francois Kidd Jr, [Primary Care Provider] - 2 Weeks [facility],. [NON-STAFF] - 1 Week
== END 2018-08-28 17:56 | disposition home or self-care (01) | DRG 621 ==
LOC: 2ORWHC 07:44 → 4SSUR 11:52
PROVIDERS: ADMIT Surgery; ATTEND Surgery
PROC: 0DB64Z3 Excision of Stomach, Percutaneous Endoscopic Approach, Vertical (ICD-10-PCS; principal; 2018-08-25 09:45)
DX: E66.01 Morbid (severe) obesity due to excess calories (principal); Z68.42 Body mass index [BMI] 45.0-49.9, adult; E28.2 Polycystic ovarian syndrome; F32.9 Major depressive disorder, single episode, unspecified; G89.29 Other chronic pain; Z79.899 Other long term (current) drug therapy; Z80.3 Family history of malignant neoplasm of breast; Z87.891 Personal history of nicotine dependence; G43.909 Migraine, unspecified, not intractable, without status migrainosus; Z90.721 Acquired absence of ovaries, unilateral; M54.9 Dorsalgia, unspecified; M46.92 Unspecified inflammatory spondylopathy, cervical region
CPT/HCPCS: 74240; 80051; 81025; 82310; 82565; 83735; 84100; 84520; 85025; 88307; 94640; 94760; 94762

== ENCOUNTER → 2018-09-04 | Outpatient (CLI) | payer MEDICAID, OTHER ==
[2018-09-04 13:35] VITALS: BP 116/53; PULSE 77; TEMP 98.8; BMI 43.4
--- NOTE | 2018-09-04 14:48 | P.BASOAP ---
Subjective Progress Note Date: 09/04/18 Principal diagnosis: Morbid obesity Patient returns today for evaluation of the bariatric clinic. Surgery was a little over one week ago. Doing well at this time. Some fatigue. Over 64 ounces of liquids per day. Good urine output. No nausea or vomiting. Some itching around the incision sites. Denies fevers. Objective - Vital Signs Vital signs: Vital Signs Temp 98.8 F 09/04/18 13:23 Pulse 77 09/04/18 13:23 Resp BP 116/53 09/04/18 13:23 Pulse Ox Intake & Output 09/03/18 09/04/18 09/04/18 18:59 06:59 18:59 Weight 118.388 kg - Exam Abdomen: Soft, nondistended, incisions clean and dry, slight rash but not around the incisions Assessment/Plan (1) Morbid obesity Narrative/Plan: Continue bariatric liquid diet. Increase activity. Patient was not provided a prescription for antiacids on discharge. That will be provided at this time. Follow-up 2-3 weeks. Plan: Date: 09/04/18 Initial Weight: 136.441 kg Initial BMI: 50.0 Current Weight: 118.388 kg Current BMI: 43.4 Type of Surgery: Total Volume in Band: Previous Volume: Volume Removed: Volume Added: Band Size:
== END | disposition home or self-care (01) ==
LOC: BARWHC3 13:00
PROVIDERS: ATTEND Surgery
DX: E66.01 Morbid (severe) obesity due to excess calories (principal); L29.8 Other pruritus; R53.83 Other fatigue; Z68.41 Body mass index [BMI] 40.0-44.9, adult
CPT/HCPCS: 99211

== ENCOUNTER → 2018-09-30 | Outpatient (CLI) | payer MEDICAID, OTHER ==
[2018-09-30 13:55] VITALS: BP 122/84; PULSE 84; TEMP 98.1; BMI 41.5
--- NOTE | 2018-09-30 14:09 | P.BASOAP ---
Subjective Progress Note Date: 09/30/18 Principal diagnosis: Morbid obesity Patient seen here today at the bariatric clinic on follow-up. Surgery 1 month ago. Fatigue is improving. No itching. She was having some mild pain in the left midabdomen that is now gone. Occasional episodes of reflux. Remains on PPIs. 11 pound weight loss since last visit. She is due for one month labs at this time. Objective - Vital Signs Vital signs: Vital Signs Temp 98.1 F 09/30/18 13:52 Pulse 84 09/30/18 13:52 Resp BP 122/84 09/30/18 13:52 Pulse Ox Intake & Output 09/29/18 09/30/18 09/30/18 18:59 06:59 18:59 Weight 113.398 kg - Exam Abdomen: Soft, nondistended, nontender, incision clean and dry Assessment/Plan (1) Morbid obesity Narrative/Plan: Patient doing well at this time. Continue dietary and exercise regimen. Continue antiacids. We'll check one month labs. Follow-up 4-6 weeks. Plan: Date: 09/30/18 Initial Weight: 136.441 kg Initial BMI: 50.0 Current Weight: 113.398 kg Current BMI: 41.5 Type of Surgery: Total Volume in Band: Previous Volume: Volume Removed: Volume Added: Band Size:
== END | disposition home or self-care (01) ==
LOC: BARWHC3 12:39
PROVIDERS: ATTEND Surgery
DX: Z48.815 Encounter for surgical aftercare following surgery on the digestive system (principal); E66.01 Morbid (severe) obesity due to excess calories; Z68.41 Body mass index [BMI] 40.0-44.9, adult; Z98.84 Bariatric surgery status; Z71.3 Dietary counseling and surveillance; Z79.899 Other long term (current) drug therapy
CPT/HCPCS: 97803; 99211

== ENCOUNTER → 2018-10-20 | Outpatient (CLI) | payer MEDICAID ==
[2018-10-20 10:20] LABS: HCT 39.1 % (34.0-46.0); HGB 13.1 gm/dL (11.4-16.0); MCHC 33.5 g/dL (31.0-37.0); MCV 86.6 fL (80.0-100.0); Mean Platelet Volume 8.1; Platelet Count 199 k/uL (150-450); RBC 4.52 m/uL (3.80-5.40); RDW 14.5 % (11.5-15.5); WBC 4.2 k/uL (3.8-10.6)
[2018-10-20 16:34] LABS: Iron Saturation 19.81 (12.00-45.00)
[2018-10-20 16:42] LABS: Albumin 4.3 g/dL (3.80-4.90); Albumin/Globulin Ratio 2.15 (1.20-2.10); Anion Gap 5.6 mmol/L (4.00-12.00); Calcium 9.5 mg/dL (8.7-10.3); Carbon Dioxide 27.4 mmol/L (21.6-31.8); Potassium 4.2 mmol/L (3.5-5.5); Total Bilirubin 1.2 mg/dL (0.3-1.2); Total Protein 6.3 g/dL (6.2-8.2)
[2018-10-20 16:43] LABS: Vitamin D 25 Hydroxy 24.7 ng/mL (30.0-100.0)
== END | disposition home or self-care (01) ==
LOC: LABWHC1 09:28
PROVIDERS: ATTEND Surgery
DX: E66.01 Morbid (severe) obesity due to excess calories (principal); D50.8 Other iron deficiency anemias; E44.0 Moderate protein-calorie malnutrition
CPT/HCPCS: 36415; 80053; 82306; 82607; 82746; 83540; 83550; 84134; 84425; 84443; 85027

== ENCOUNTER → 2018-11-17 | Outpatient (CLI) | payer MEDICAID ==
--- NOTE | 2018-11-21 10:24 | MM ---
Reason for exam: screening (asymptomatic). History: Family history of breast cancer in paternal grandmother and breast cancer in maternal aunt at age 42. Taking hormonal contraceptives beginning at age 16. Physical Findings: Nurse Summary: a0.5 cm left breast density at 1400. MG Screening Mammo w CAD Bilateral CC and MLO view(s) were taken. No prior studies available for comparison. There are scattered fibroglandular densities. There is a benign left oil cyst corresponding to the left palpable abnormality. These results were verbally communicated with the patient and result sheet given to the patient on 11/17/18. ASSESSMENT: Benign, BI-RAD 2 RECOMMENDATION: Routine screening mammogram of both breasts in 1 year.
== END | disposition home or self-care (01) ==
LOC: RADMAMWWP 09:16
PROVIDERS: ATTEND Obstetrics & Gynecology
DX: Z12.31 Encounter for screening mammogram for malignant neoplasm of breast (principal); Z80.3 Family history of malignant neoplasm of breast
CPT/HCPCS: 77067

== ENCOUNTER → 2018-12-30 | Outpatient (CLI) | payer MEDICAID ==
[2018-12-30 13:12] VITALS: BP 100/69; PULSE 98; RESP 16; TEMP 98.1; BMI 37.8
--- NOTE | 2018-12-30 17:05 | P.BASOAP ---
Subjective Progress Note Date: 12/30/18 Principal diagnosis: Morbid obesity Patient returns for follow-up visit. She really was told not to follow-up with us for 3 months when she called the call center to make her appointment last time. Has done well from a weight loss standpoint. 23 pounds since last visit. No nausea or vomiting. No heartburn. She is not taking any antacids. She is due for 3 month labs. Objective - Vital Signs Vital signs: Vital Signs Temp 98.1 F 12/30/18 13:09 Pulse 98 12/30/18 13:09 Resp 16 12/30/18 13:09 BP 100/69 12/30/18 13:09 Pulse Ox Intake & Output 12/29/18 12/30/18 12/30/18 18:59 06:59 18:59 Weight 102.965 kg - Exam Abdomen: Soft, nontender, nondistended Assessment/Plan (1) Morbid obesity Narrative/Plan: Patient doing well postoperative. We'll check three-month labs at this time. Continue dietary and exercise regimen. She is refusing dietary evaluation today. Plan: Date: 12/30/18 Initial Weight: 136.441 kg Initial BMI: 50.0 Current Weight: 102.965 kg Current BMI: 37.8 Type of Surgery: Total Volume in Band: Previous Volume: Volume Removed: Volume Added: Band Size:
== END | disposition home or self-care (01) ==
LOC: BARWHC3 12:45
PROVIDERS: ATTEND Surgery
DX: Z09 Encounter for follow-up examination after completed treatment for conditions other than malignant neoplasm (principal); E66.01 Morbid (severe) obesity due to excess calories; Z98.84 Bariatric surgery status; Z68.37 Body mass index [BMI] 37.0-37.9, adult
CPT/HCPCS: 99211

== ENCOUNTER → 2019-02-02 | Outpatient (CLI) | payer MEDICAID ==
[2019-02-02 11:12] LABS: HCT 38.1 % (34.0-46.0); HGB 12.4 gm/dL (11.4-16.0); MCH 28.4 pg (25.0-35.0); MCHC 32.5 g/dL (31.0-37.0); MCV 87.4 fL (80.0-100.0); Mean Platelet Volume 7.5; Platelet Count 246 k/uL (150-450); RBC 4.36 m/uL (3.80-5.40); RDW 13.8 % (11.5-15.5); WBC 4.7 k/uL (3.8-10.6)
[2019-02-02 16:22] LABS: Vitamin D 25 Hydroxy 36.2 ng/mL (30.0-100.0)
[2019-02-02 18:04] LABS: Albumin 4.1 g/dL (3.80-4.90); Albumin/Globulin Ratio 1.95 (1.60-3.17); Globulin 2.1 g/dL (1.6-3.3); Potassium 4.6 mmol/L (3.5-5.5); Total Bilirubin 0.7 mg/dL (0.2-1.2); Total Protein 6.2 g/dL (6.2-8.2)
[2019-02-04 06:44] LABS: Vit B1(Thiamine) 54 ug/L (38-122)
[2019-02-04 07:08] LABS: Vitamin A 38 ug/dL (38-106)
== END ==
LOC: LABWHC1 08:38
PROVIDERS: ATTEND Surgery
DX: Z48.815 Encounter for surgical aftercare following surgery on the digestive system (principal); E66.01 Morbid (severe) obesity due to excess calories; K90.89 Other intestinal malabsorption; E55.9 Vitamin D deficiency, unspecified; Z98.84 Bariatric surgery status
CPT/HCPCS: 36415; 80053; 82306; 82607; 83540; 84425; 84590; 85027

== ENCOUNTER → 2019-02-24 | Outpatient (CLI) | payer MEDICAID ==
[2019-02-24 13:34] VITALS: BP 120/79; PULSE 86; RESP 16; TEMP 97.8; BMI 35.6
--- NOTE | 2019-02-24 14:02 | P.BASOAP ---
Subjective Progress Note Date: 02/24/19 Principal diagnosis: Obesity Patient doing well today. She has lost 13 pounds in the last 2 months. Complains of a rash beneath the pannus. Occasionally will have epigastric achy pain after exercising. Less heartburn lately. Takes her antiacids on as-needed basis. Still exercising frequently. Labs from February 02 noted. Objective - Vital Signs Vital signs: Vital Signs Temp 97.8 F 02/24/19 13:32 Pulse 86 02/24/19 13:32 Resp 16 02/24/19 13:32 BP 120/79 02/24/19 13:32 Pulse Ox Intake & Output 02/23/19 02/24/19 02/24/19 18:59 06:59 18:59 Weight 97.069 kg - Exam Abdomen: Soft, nontender, nondistended, mild irritation beneath pannus Assessment/Plan (1) Morbid obesity Narrative/Plan: Continue exercising regimen. Continue as needed antiacids. Follow-up visit 2 months. Plan: Date: 02/24/19 Initial Weight: 136.441 kg Initial BMI: 50.0 Current Weight: 97.069 kg Current BMI: 35.6 Type of Surgery: Total Volume in Band: Previous Volume: Volume Removed: Volume Added: Band Size:
== END | disposition home or self-care (01) ==
LOC: BARWHC3 12:53
PROVIDERS: ATTEND Surgery
DX: E66.01 Morbid (severe) obesity due to excess calories (principal); Z68.35 Body mass index [BMI] 35.0-35.9, adult
CPT/HCPCS: 99211

== ENCOUNTER → 2019-09-22 | Outpatient (CLI) | payer MEDICAID ==
[2019-09-22 13:50] VITALS: BP 115/73; PULSE 72; TEMP 97.8; BMI 32.5
--- NOTE | 2019-09-22 13:51 | P.BASOAP ---
Subjective Progress Note Date: 09/22/19 Principal diagnosis: Morbid obesity Patient returns for one year follow-up. Surgery was August 25 of last year. Doing well. No reflux. No nausea or vomiting. Lost another 10 pounds since her visit 4-5 months ago. Denies abdominal pain. Still having a rash beneath pannus at times. She is due for one year labs. Objective - Exam Abdomen: Soft, nontender, nondistended Assessment/Plan (1) Morbid obesity Narrative/Plan: Patient doing well at this time. We'll check one year labs. Continue dietary and exercise regimen. Follow-up evaluation 6 months. Plan: Date: Initial Weight: 136.441 kg Initial BMI: Current Weight: Current BMI: Type of Surgery: Total Volume in Band: Previous Volume: Volume Removed: Volume Added: Band Size:
== END | disposition home or self-care (01) ==
LOC: BARWHC3 13:15
PROVIDERS: ATTEND Surgery
DX: E66.01 Morbid (severe) obesity due to excess calories (principal); Z98.890 Other specified postprocedural states
CPT/HCPCS: 99211

== ENCOUNTER → 2020-04-05 | Outpatient (CLI) | payer MEDICAID ==
[2020-04-05 15:21] LABS: HGB 13.8 gm/dL (11.4-16.0); MCH 30.1 pg (25.0-35.0); MCHC 33.7 g/dL (31.0-37.0); MCV 89.4 fL (80.0-100.0); Mean Platelet Volume 7.9; Platelet Count 238 k/uL (150-450); RBC 4.59 m/uL (3.80-5.40); WBC 5.6 k/uL (3.8-10.6)
[2020-04-07 11:43] LABS: African American GFR (CKD) 106.9 (60.0-200.0); Albumin 4.4 g/dL (3.80-4.90); Albumin/Globulin Ratio 1.76 (1.60-3.17); BUN/Creat Ratio 18.75 Ratio (12.00-20.00); Calcium 10.1 mg/dL (8.7-10.3); Globulin 2.5 g/dL (1.6-3.3); Non-African American GFR(CKD) 92.2 (60.0-200.0); Potassium 4.5 mmol/L (3.5-5.5); Total Bilirubin 1.2 mg/dL (0.3-1.2); Total Protein 6.9 g/dL (6.2-8.2)
== END | disposition home or self-care (01) ==
LOC: LABWHC1 14:50
PROVIDERS: ATTEND Surgery
DX: K90.89 Other intestinal malabsorption (principal); E55.9 Vitamin D deficiency, unspecified; E66.01 Morbid (severe) obesity due to excess calories
CPT/HCPCS: 36415; 80053; 82306; 82607; 82746; 83540; 84425; 85027

== ENCOUNTER → 2020-04-05 | Outpatient (CLI) | payer MEDICAID ==
[2020-04-05 14:02] VITALS: BP 124/76; PULSE 91; RESP 20; TEMP 98.1; BMI 31.9
--- NOTE | 2020-04-05 15:30 | P.BASOAP ---
Subjective Progress Note Date: 04/05/20 Principal diagnosis: Morbid obesity Patient doing well. Here today for 1.5 year follow-up after sleeve gastrectomy. Last seen in September. One year labs were ordered at that time however the patient states she forgot to have been drawn. Complaining of a rash beneath her pannus. Has tried various topical agents without success. No heartburn, no nausea vomiting, no antiacid use. Maintain her weight with only 2 pound weight gain. Currently 198. Objective - Vital Signs Vital signs: Vital Signs Temp 98.1 F 04/05/20 14:00 Pulse 91 04/05/20 14:00 Resp 20 04/05/20 14:00 BP 124/76 04/05/20 14:00 Pulse Ox Intake & Output 04/04/20 04/05/20 04/05/20 18:59 06:59 18:59 Weight 87.09 kg - Exam Abdomen: Soft, nontender, nondistended Assessment/Plan (1) Morbid obesity Narrative/Plan: Patient doing well at this time. We'll check serial labs at this time. Follow- up 1 year. Patient will likely make appointment to see plastic surgery in the near future regarding possible abdominoplasty. Plan: Date: 04/05/20 Initial Weight: 136.441 kg Initial BMI: 50.0 Current Weight: 87.09 kg Current BMI: 31.9 Type of Surgery: Total Volume in Band: Previous Volume: Volume Removed: Volume Added: Band Size:
== END | disposition home or self-care (01) ==
LOC: BARWHC3 13:50
PROVIDERS: ATTEND Surgery
DX: Z48.815 Encounter for surgical aftercare following surgery on the digestive system (principal); E66.01 Morbid (severe) obesity due to excess calories; Z68.31 Body mass index [BMI] 31.0-31.9, adult; Z98.84 Bariatric surgery status
CPT/HCPCS: 97803; 99211

== ENCOUNTER → 2020-08-08 | Outpatient (CLI) | payer MEDICAID ==
--- NOTE | 2020-08-08 07:48 | CT ---
EXAMINATION TYPE: CT brain wo con DATE OF EXAM: 08/08/2020 COMPARISON: None HISTORY: headache, blurry vision, dizziness CT DLP: 773.[address] of the brain was performed. The ventricles, basal cisterns and sulci overlying the cerebral convexities demonstrate a normal appe arance. There is no evidence for intracranial hemorrhage or sulcal effacement. No mass effects are seen. Osseous calvarium is intact. If symptoms persist consider MRI as clinically warranted. IMPRESSION: 1. No acute intracranial process is seen at this time.
== END | disposition home or self-care (01) ==
LOC: RADCTMAIN 06:37
PROVIDERS: ATTEND Family Medicine
DX: R51 Headache (principal); R41.3 Other amnesia
CPT/HCPCS: 70450

== ENCOUNTER → 2020-11-05 | Outpatient (CLI) | payer MEDICAID | END | disposition home or self-care (01) | LOC: LABMAIN 00:58 | PROVIDERS: ATTEND Emergency Medicine | DX: Z53.9 Procedure and treatment not carried out, unspecified reason (principal) ==

== ENCOUNTER → 2021-09-16 | Outpatient (CLI) | payer MEDICAID, OTHER | END | disposition home or self-care (01) | LOC: LABWHC1 18:13 | PROVIDERS: ATTEND Emergency Medicine | DX: Z20.828 Contact with and (suspected) exposure to other viral communicable diseases (principal) | CPT/HCPCS: 87635 ==

== ENCOUNTER → 2023-07-24 | Outpatient (CLI) | payer BC ==
--- NOTE | 2023-07-24 13:52 | CT ---
EXAMINATION TYPE: CT abdomen wo/w con DATE OF EXAM: 07/24/2023 COMPARISON: None available. HISTORY: Left upper quadrant pain. CT DLP: 2003 mGycm Automated exposure control for dose reduction was used. TECHNIQUE: Helical acquisition of images was performed from the lung bases through the top of iliac crest to include entire abdomen. CONTRAST: Performed with Oral Contrast and without and with IV Contrast, patient injected with 100 mL of Isovue 300. FINDINGS: LUNG BASES: No significant abnormality is appreciated. LIVER/GB: No gross liver masses seen. The gallbladder is absent. PANCREAS: No significant abnormality is seen. SPLEEN: No significant abnormality is seen. ADRENALS: No significant abnormality is seen. KIDNEYS: No significant abnormality is seen. BOWEL: There has been a prior gastric sleeve. Dilated loops of bowel or bowel wall thickening is oth erwise noted in the visualized portions of the abdomen. LYMPH NODES: No significant abnormality is seen. OSSEOUS STRUCTURES: No significant abnormality is seen. FREE AIR: No free air is visualized. OTHER: IMPRESSION: NO ACUTE ABNORMALITY WITHIN THE ABDOMEN.
[2023-07-24 16:37] LABS: Basophils # (A) 0.04 X 10*3/uL (0.00-0.10); Basophils % (A) 0.8 %; Eosinophils # (A) 0.08 X 10*3/uL (0.04-0.35); Eosinophils % (A) 1.6 %; HCT 37.1 % (37.2-46.3); HGB 12.5 d/dL (12.0-15.0); Lymphocytes # (A) 2.22 X 10*3/uL (0.90-5.00); Lymphocytes % (A) 43.7 %; MCH 29.6 pg (27.0-32.0); MCHC 33.7 d/dL (32.0-37.0); MCV 87.9 FL (80.0-97.0); Mean Platelet Volume 10.6 FL (9.5-12.2); Monocytes # (A) 0.38 X 10*3/uL (0.20-1.00); Monocytes % (A) 7.5 %; NRBC Per 100 WBC 0 X 10*3/uL (0.00-0.01); Neutrophils # (A) 2.35 X 10*3/uL (1.80-7.70); Neutrophils % (A) 46.2 %; Platelet Count 253 X 10*3/uL (140-440); RBC 4.22 X 10*6/uL (4.10-5.20); RDW 13.2 % (11.5-14.5); WBC 5.08 X 10*3/uL (4.50-10.00)
[2023-07-24 18:42] LABS: ALT 22 U/L (8-44); AST 17 U/L (13-35); Albumin 4.4 d/dL (3.8-4.9); Albumin/Globulin Ratio 1.76 Ratio (1.60-3.17); Alkaline Phosphatase 54 U/L (41-126); Amylase 62 U/L (23-121); BUN/Creat Ratio 14.38 Ratio (12.00-20.00); Blood Urea Nitrogen 11.5 mg/dL (9.0-27.0); Calcium 9.5 mg/dL (8.7-10.3); Carbon Dioxide 25.1 mmol/L (21.6-31.8); Chloride 103 mmol/L (96-109); Globulin 2.5 d/dL (1.6-3.3); Glucose 82 mg/dL (70-110); Lipase 43 U/L (14-63); Potassium 3.8 mmol/L (3.5-5.5); Sodium 140 mmol/L (135-145); Total Bilirubin 0.8 mg/dL (0.3-1.2); Total Protein 6.9 d/dL (6.2-8.2)
== END | disposition home or self-care (01) ==
LOC: RADCTMAIN 12:24
PROVIDERS: ATTEND Family Medicine
DX: R10.84 Generalized abdominal pain (principal)
CPT/HCPCS: 80053; 82150; 83690; 85025; 74170; Q9967